=== PATIENT | male | born 1960 | race Caucasian/White ===

== ENCOUNTER 2023-10-21 05:32 | Day surgery (SDC) | payer BC ==
[2023-10-13 13:38] LABS: BASOPHILS # (AUTO) 0.1 X10'3 (0-0.2); EOSINOPHILS # (AUTO) 0.5 X10'3 (0-0.9); EOSINOPHILS % (AUTO) 6.2 % (0-6); LYMPHOCYTES # (AUTO) 1.4 X10'3 (1.1-4.8); LYMPHOCYTES % (AUTO) 16.4 % (21-51); MEAN CORPUSCULAR HEMOGLOBIN 34.8 PG (27.0-31.0); MEAN CORPUSCULAR HGB CONC 34.6 g/dL (33.0-36.5); MEAN CORPUSCULAR VOLUME 100.4 FL (78-98); MEAN PLATELET VOLUME 8.9 FL (7.4-10.4); MONOCYTES # (AUTO) 0.7 X10'3 (0-0.9); MONOCYTES % (AUTO) 7.8 % (2-12); NEUTROPHILS # (AUTO) 5.8 X10'3 (1.8-7.7); NEUTROPHILS % (AUTO) 68.6 % (42-75); PRE OP HEMATOCRIT 48.1 % (42.0-52.0); PRE OP HEMOGLOBIN 16.6 g/dL (14.0-17.9); PRE OP PLATELET COUNT 284 X10'3 (140-440); PRE OP WHITE BLOOD COUNT 8.4 10'3 (4.8-10.8); RED BLOOD COUNT 4.78 X10'6 (4.70-6.10); RED CELL DISTRIBUTION WIDTH 12.5 % (11.5-14.5)
[2023-10-21] VITALS (22 sets, daily range): BP systolic 84–110; BP diastolic 60–76; PULSE 87–97; RESP 13–20; TEMP 97.6; O2SAT 88–100
[~2023-10-21] VITALS: Ht 160 cm; Wt 106.2 kg
[~2023-10-21 05:32] MED LIST: ACET-812 PO; BRIM10DR2 EACHEYE; BUME0.5T6 PO; DAPA10TA PO; METF-438 PO; PANT40TA54 PO; SACU1TAB PO; SIMV10TA98 PO; SPIR25TA5 PO; cefazolin 2gm/D5W 100mL 100 ML IV ONE
[2023-10-21] MEDS: famotidine 20mg tablet PO ONE (06:28)
[2023-10-21] MEDS: ringers solution, lacted 1,000 ML IV SCH (06:28)
[2023-10-21 07:39] LABS: ALANINE AMINOTRANSFERASE 22 U/L (12-78); ALBUMIN 3.3 G/DL (3.4-5.0); ALBUMIN/GLOBULIN RATIO 0.8 (1.1-1.5); ALKALINE PHOSPHATASE 82 IU/L (46-116); ANION GAP 10 (8-16); ASPARTATE AMINO TRANSFERASE 23 U/L (10-37); BILIRUBIN,TOTAL 0.9 MG/DL (0.1-1.0); BLOOD UREA NITROGEN 23 MG/DL (7-18); BUN/CREATININE RATIO 21.7 (10.0-20.0); CALCIUM 9.1 MG/DL (8.5-10.1); CHLORIDE 96 MMOL/L (99-107); CREATININE 1.06 MG/DL (0.60-1.10); GLUCOSE 152 MG/DL (70-104); POTASSIUM 4.2 MMOL/L (3.5-5.1); SODIUM 131 MMOL/L (135-145); TOTAL CARBON DIOXIDE 25.4 MMOL/L (24-32); TOTAL PROTEIN 7.4 G/DL (6.4-8.2); eCRCL 57 ML/MIN; eGFR 70 ML/MIN
[2023-10-21] MEDS ORDERED: midazolam 1 mg/ML 2ml injection ONE (08:21)
[2023-10-21] MEDS ORDERED: cloNIDine hcl/PF 100mcg/ml inj ONE (08:21)
[2023-10-21] MEDS ORDERED: fentaNYL/PF 50MCG/1 ML 2ML syringe ONE (08:21)
[2023-10-21] MEDS ORDERED: sevoflurane 250ml liquid IH ONE (08:25)
[2023-10-21] MEDS ORDERED: HYDROcodone/acetaminophen 10/325mg tab PO PRN (08:50)
[2023-10-21] MEDS ORDERED: rocuronium 10mg/ml inj IV ONE (09:04)
[2023-10-21] MEDS ORDERED: triamcinolone acetonide 40mg/ml inj ONE (09:19)
[2023-10-21] MEDS ORDERED: BUPIVAcaine/PF 2.5mg/ml (0.25%) 10ml vial ONE (09:19)
[2023-10-21] MEDS ORDERED: morphine 4 MG/ML inj SYRINge IV PRN (09:35)
[2023-10-21] MEDS ORDERED: morphine 2 MG/ML inj. syringe IV PRN (09:35)
[2023-10-21] MEDS ORDERED: enalaprilat dihydrate 2.5mg/2ml vial IV PRN (09:35)
[2023-10-21] MEDS ORDERED: ondansetron/PF 4mg/2ml inj IV PRN (09:35)
[2023-10-21] MEDS ORDERED: proCHLORperazine 10 MG/2 ml inj IV PRN (09:35)
[2023-10-21] MEDS ORDERED: labetalol 20mg/4ml (5mg/ml) syringe IV PRN (09:35)
[2023-10-21] MEDS ORDERED: ringers solution, lacted 1,000 ML IV SCH (09:35)
[2023-10-21] MEDS ORDERED: meperidine/PF 25mg/ml syringe IV PRN ×3 (09:35)
[2023-10-21] MEDS: triamcinolone acetonide 40mg/ml inj IJ ONE (09:45)
[2023-10-21] MEDS ORDERED: sugammadex 200mg/2ml injection IV ONE (09:48)
[2023-10-21] MEDS ORDERED: ondansetron/PF 4mg/2ml inj ONE (09:49)
[2023-10-21] MEDS ORDERED: dexamethasone sod phosphate 4mg/ml inj. ONE (09:56)
[2023-10-21] MEDS ORDERED: propofol inj 20 ML IV ONE (09:56)
[2023-10-21] MEDS ORDERED: LIDOcaine 1%/PF 5ML 10 MG/ML VIAL ONE (09:56)
[2023-10-21] MEDS: albuterol 2.5 MG/3 ML nebule NEB ONE (12:56)
== END 2023-10-21 15:03 | disposition home or self-care (01) ==
LOC: PAS 05:32
PROVIDERS: ATTEND Orthopaedic Surgery
DX: M75.42 Impingement syndrome of left shoulder (principal); M75.02 Adhesive capsulitis of left shoulder; M19.012 Primary osteoarthritis, left shoulder; I11.0 Hypertensive heart disease with heart failure; I50.9 Heart failure, unspecified; E11.9 Type 2 diabetes mellitus without complications; K21.9 Gastro-esophageal reflux disease without esophagitis; G43.909 Migraine, unspecified, not intractable, without status migrainosus; G47.30 Sleep apnea, unspecified; H40.9 Unspecified glaucoma; M19.90 Unspecified osteoarthritis, unspecified site; Z79.1 Long term (current) use of non-steroidal anti-inflammatories (NSAID); Z79.84 Long term (current) use of oral hypoglycemic drugs; Z79.891 Long term (current) use of opiate analgesic; Z79.899 Other long term (current) drug therapy; Z98.890 Other specified postprocedural states
CPT/HCPCS: 29823; 29824; 36415; 80053; 82948; 85025; 93005; 94640; 94760; J0690; J0735; J1100; J2250; J2405; J2704; J2710; J3010; J3301; J3490; J7120; Z7506; Z7508; Z7512; A4565; A4615; A4618; A6253; A6449; A7000

== ENCOUNTER 2023-12-28 09:15 | Day surgery (SDC) | payer BC ==
[2023-12-24 14:25] LABS: BASOPHILS # (AUTO) 0.1 X10'3 (0-0.2); BASOPHILS % (AUTO) 0.8 % (0-1); EOSINOPHILS # (AUTO) 0.4 X10'3 (0-0.9); EOSINOPHILS % (AUTO) 3.5 % (0-6); HEMATOCRIT 46.8 % (42.0-52.0); HEMOGLOBIN 15.6 g/dl (14.0-17.9); LYMPHOCYTES # (AUTO) 1.9 X10'3 (1.1-4.8); LYMPHOCYTES % (AUTO) 16.8 % (21-51); MEAN CORPUSCULAR HEMOGLOBIN 33.7 PG (27.0-31.0); MEAN CORPUSCULAR HGB CONC 33.3 g/dL (33.0-36.5); MEAN CORPUSCULAR VOLUME 101.4 FL (78-98); MEAN PLATELET VOLUME 7.9 FL (7.4-10.4); MONOCYTES # (AUTO) 1.3 X10'3 (0-0.9); MONOCYTES % (AUTO) 11.2 % (2-12); NEUTROPHILS # (AUTO) 7.7 X10'3 (1.8-7.7); NEUTROPHILS % (AUTO) 67.7 % (42-75); PLATELET COUNT 267 X10'3 (140-440); RED BLOOD COUNT 4.62 X10'6 (4.70-6.10); RED CELL DISTRIBUTION WIDTH 13.7 % (11.5-14.5); WHITE BLOOD COUNT 11.3 X10'3 (4.5-11.0)
[2023-12-24 14:36] LABS: APTT 26 SECONDS (22-32); PROTHROMBIN TIME 10.8 SECONDS (9.0-12.0)
[2023-12-24 14:38] LABS: ALBUMIN 3.7 G/DL (3.4-5.0); ANION GAP 4 (8-16); BLOOD UREA NITROGEN 34 MG/DL (7-18); BUN/CREATININE RATIO 30.1 (10.0-20.0); CALCIUM 9.3 MG/DL (8.5-10.1); CHLORIDE 97 MMOL/L (99-107); CHOL/HDL RATIO 3.1 (0.00-4.99); CHOLESTEROL 172 MG/DL (0-200); CREATININE 1.13 MG/DL (0.60-1.10); GLUCOSE 154 MG/DL (70-104); HDL CHOLESTEROL 55 MG/DL (35-60); LDL CHOLESTEROL 89 MG/DL (50-100); POTASSIUM 4.2 MMOL/L (3.5-5.1); SODIUM 135 MMOL/L (135-145); TOTAL CARBON DIOXIDE 33.6 MMOL/L (24-32); TRIGLYCERIDES 216 MG/DL (20-135); eGFR 65 ML/MIN
[~2023-12-28] VITALS: Ht 160 cm; Wt 108.4 kg
[2023-12-28] VITALS (10 sets, daily range): BP systolic 116–149; BP diastolic 61–95; PULSE 98–109; RESP 17–20; TEMP 97.6; O2SAT 92–95
[~2023-12-28 09:15] MED LIST changes: -cefazolin 2gm/D5W 100mL 100 ML IV ONE
[2023-12-28] MEDS ORDERED: ISOS30TA84 PO (10:23)
[2023-12-28] MEDS ORDERED: FLUT16SP26 INH (10:23)
[2023-12-28] MEDS ORDERED: SEMA2PEN SQ (10:23)
[2023-12-28] MEDS ORDERED: ATOR40TA PO (10:23)
[2023-12-28] MEDS ORDERED: NITR0.4T48 SL (10:23)
[2023-12-28] MEDS ORDERED: MULT-1249 PO (10:23)
[2023-12-28] MEDS: LORazepam 0.5 MG tablet PO PRN (10:50)
[2023-12-28] MEDS: diphenhydrAMINE 25mg capsule PO PRN (10:50)
[2023-12-28] MEDS: normal saline 1,000 ML IV SCH (10:51)
[2023-12-28] MEDS ORDERED: iohexol 350MG/ML 100ml bottle IV ONE ×3 (11:49→13:43)
[2023-12-28] MEDS ORDERED: verapamil 2.5 mg/ml inj IV ONE (11:49)
[2023-12-28] MEDS ORDERED: fentaNYL/PF 50MCG/1 ML 2ML syringe ONE ×2 (11:49→13:44)
[2023-12-28] MEDS ORDERED: midazolam 1 mg/ML 2ml injection ONE ×3 (11:49→13:44)
[2023-12-28] MEDS ORDERED: LIDOcaine 1% (10mg/ml) 2ml vial ONE (11:49)
[2023-12-28] MEDS ORDERED: heparin 1,000unit/ml 10ml vial 10 ML ONE ×2 (11:49→14:08)
[2023-12-28] MEDS ORDERED: nitroGLYCERIN 500mcg/5mL D5W 5 ML IV ONE (11:49)
[2023-12-28] MEDS ORDERED: clopidogrel 300mg tablet ONE (14:30)
[2023-12-28] MEDS ORDERED: aspirin 325mg tablet ONE (14:30)
== END 2023-12-28 17:15 | disposition home or self-care (01) ==
LOC: SSTAY O 09:15
PROVIDERS: ATTEND Student in an Organized Health Care Education/Training Program
DX: I25.118 Atherosclerotic heart disease of native coronary artery with other forms of angina pectoris (principal); I11.0 Hypertensive heart disease with heart failure; I50.9 Heart failure, unspecified; E11.9 Type 2 diabetes mellitus without complications; E78.00 Pure hypercholesterolemia, unspecified; G47.33 Obstructive sleep apnea (adult) (pediatric); Z79.899 Other long term (current) drug therapy
CPT/HCPCS: 36415; 80048; 80061; 82948; 85025; 85610; 85730; 93005; 93458; 99152; 99153; A6258; C1874; C9602; J1644; J2250; J3010; J3490; J7030; Q0163; Q9967; 92924; A4615; C1724; C1725; C1751; C1769; C1894; C9600